=== PATIENT | male | born 1960 | race Caucasian/White ===

== ENCOUNTER 2017-09-25 07:47 | Day surgery (SDC) | payer OTHER ==
[2017-09-23 16:35] VITALS: BP 133/71
[2017-09-23 16:57] LABS: CREATININE 1.3 mg/dL (0.5-1.5); POTASSIUM 3.7 mmol/L (3.5-5.1)
[2017-09-23 17:17] LABS: HEMATOCRIT 34.1 % (42-54); MEAN CORPUSCULAR HEMOGLOBIN 30.5 pg (27.0-33.0); MEAN CORPUSCULAR HGB CONC 36.6 g/dL (32.0-36.0); MEAN CORPUSCULAR VOLUME 83.6 fL (79-99); PLATELET COUNT (AUTO) 321 K/uL (130-400); RED BLOOD CELL COUNT(AUTO) 4.08 MIL/uL (4.50-6.20); RED CELL DISTRIBUTION WIDTH 13.1 % (11.0-15.5); WHITE BLOOD COUNT (AUTO) 7.3 K/uL (4.8-10.8)
[2017-09-25] VITALS (16 sets, daily range): BP systolic 95–145; BP diastolic 53–82
[~2017-09-25] VITALS: Ht 168.9 cm; Wt 85.6 kg
[~2017-09-25 07:47] MED LIST: ASPI-1181 PO; CARV12.511 PO; CYCL10 PO; LISI1TAB11 PO; METF500T6 PO; PREG75 PO; SIMV10TA6 PO; TRAM50TA4 PO; ZOLP5TAB8 PO
[2017-09-25] MEDS ORDERED: CEFAZOLIN SODIUM 1 GM VIAL IVP ONE ×2 (08:00→11:15)
[2017-09-25] MEDS ORDERED: SODIUM CHLORIDE 0.9% 1000ML 1,000 ML IV ONE (10:40)
[2017-09-25] MEDS ORDERED: CEFAZOLIN SODIUM 1 GM VIAL ONE (10:40)
[2017-09-25] MEDS ORDERED: PROPOFOL 10 MG/ML 20ML VIAL IV ONE (10:58)
[2017-09-25] MEDS ORDERED: MIDAZOLAM HCL 1 MG/ML 2ML VIAL ONE (10:58)
[2017-09-25] MEDS ORDERED: FENTANYL CITRATE PF 50 MCG/1 ML 2ML VIAL ONE (10:58)
[2017-09-25] MEDS ORDERED: EPHEDRINE SULFATE 50 MG/ML AMPULE ONE (11:26)
[2017-09-25] MEDS ORDERED: PHEN-934 PO (13:28)
[2017-09-25] MEDS ORDERED: CEPH500B PO (13:28)
[2017-09-25] MEDS ORDERED: PHENAZOPYRIDINE HCL 200 MG TABLET PO SCH (13:30)
== END 2017-09-25 14:05 | disposition home or self-care (01) ==
LOC: DAH 07:47
PROVIDERS: ATTEND Urology
DX: N32.0 Bladder-neck obstruction (principal); I10 Essential (primary) hypertension; E11.9 Type 2 diabetes mellitus without complications; Z87.891 Personal history of nicotine dependence
CPT/HCPCS: 36415; 52500; 80048; 82948 ×2; 85027; A4218; A4344; A4358; A4510 ×2; J0690 ×2; J2250; J2704; J3010; J3490; J7030 ×2